=== PATIENT | female | born 1965 | race Caucasian/White ===

== ENCOUNTER 2017-11-18 07:51 | Emergency (ER) | payer BC ==
[2017-11-18 08:34] LABS: ABS Basophils 0.1 10^3/ul (0-0.2); ABS Eosinophils 0.1 10^3/ul (0-0.6); ABS Lymphocytes 1.3 10^3/ul (1.0-4.8); ABS Monocytes 0.6 10^3/ul (0-0.8); ABS Neutrophils 4.4 10^3/ul (1.5-7.7); ABS Nucleated RBC 0 10^3/ul; Eosinophil % 1.8 % (0-6); Hematocrit 42 % (35-47); Hemoglobin 14.5 g/dl (12.0-16.0); Lymphocyte % 19.9 % (25-47); Mean Corpuscular HGB Conc 35 g/dl (31-36); Mean Corpuscular Hemoglobin 32 pg (27-31); Mean Corpuscular Volume 93 fL (80-97); Mean Platelet Volume 7.7 um3 (7.4-10.4); Nucleated Red Blood Cells % 0.1; Platelet Count 269 10^3/ul (150-450); Red Blood Count 4.51 10^6/ul (4.0-5.4); Red Cell Distribution Width 13 % (10.5-15); White Blood Count 6.6 10^3/ul (3.5-10.8)
[2017-11-18 08:42] LABS: INR 0.88 (0.77-1.02)
[2017-11-18 08:51] LABS: EGFR Non-African American 76.7 (>60)
--- NOTE | 2017-11-18 09:25 | ED ---
Lower Extremity - HPI Summary HPI Summary: 52-year-old female presents with right leg pain for the past couple days. She states it feels similar to when she has DVT in the past. She wanted to be sure she doesn't have DVT because she is [place] [facility] [place] She denies any chest pain or shortness breath. She states she has numbness and tingling on the side of her right thigh. She admits to occasional hip pain. She denies any back pain. She denies any loss of bowel or bladder. She denies any saddle anesthesia. She denies any fevers. She denies any spreading redness. She denies any rash. She is able to ambulate without difficulty. She states she got blood clot because she is traveling and is on control. She is no longer on control. She denies any family history of blood clots. No recent surgeries. Is nonsmoker. She describes it as a cramp sensation in her calf occasionally. - History of Current Complaint Chief Complaint: EDExtremityLower Stated Complaint: RT LEG PAIN Time Seen by Provider: 11/18/17 08:08 Pain Intensity: 5 - Allergies/Home Medications Allergies/Adverse Reactions: Allergies Allergy/AdvReac Type Severity Reaction Status Date / Time MS Gluten Meal [Gluten Meal] Allergy POS BLOOD Verified 11/18/17 07:58 TEST- LOOSE STOOLS Home Medications: Home Medications Calcium Polycarbophil TAB* [Fibercon TAB*] 625 mg PO DAILY 11/18/17 [History Confirmed 11/18/17] PMH/Surg Hx/FS Hx/Imm Hx Endocrine/Hematology History: Denies: Hx Diabetes Cardiovascular History: Reports: Other Cardiovascular Problems/Disorders - DVT RIGHT LEG 2009 Denies: Hx Hypertension GI History: Reports: Other GI Disorders - GLUTEN INTOLERANT Musculoskeletal History: Denies: Hx Rheumatoid Arthritis, Hx Osteoporosis Sensory History: Denies: Hx Contacts or Glasses, Hx Hearing Aid Opthamlomology History: Denies: Hx Contacts or Glasses - Cancer History Hx Chemotherapy: No Hx Radiation Therapy: No - Surgical History Surgery Procedure, Year, and Place: hysterectomy Hx Anesthesia Reactions: No Infectious Disease History: No Infectious Disease History: Denies: Traveled Outside the [place] in Last 30 Days - Family History Known Family History: Negative: Blood Disorder - Social History Alcohol Use: Daily Alcohol Amount: 1 PER DAY Substance Use Type: Reports: None Smoking Status (MU): Never Smoked Tobacco Have You Smoked in the Last Year: No Review of Systems Negative: Fever Negative: Chest Pain Negative: Shortness Of Breath Positive: Myalgia - right leg All Other Systems Reviewed And Are Negative: Yes Physical Exam Triage Information Reviewed: Yes Vital Signs On Initial Exam: Initial Vitals Temp Pulse Resp BP Pulse Ox 99.3 F 78 16 162/98 100 11/18/17 07:56 11/18/17 07:56 11/18/17 07:56 11/18/17 07:56 11/18/17 07:56 Vital Signs Reviewed: Yes Appearance: Positive: Well-Appearing Skin: Positive: Warm, Dry Head/Face: Positive: Normal Head/Face Inspection Eyes: Positive: Normal, Conjunctiva Clear Respiratory/Lung Sounds: Positive: Clear to Auscultation, Breath Sounds Present Cardiovascular: Positive: Normal, RRR Musculoskeletal: Positive: Strength/ROM Intact - right leg pain, Other - good pulses, sensation grossly intact, neg homans, neg SASKIA test. Negative: Edema Right Neurological: Positive: Normal Psychiatric: Positive: Normal Diagnostics - Vital Signs Vital Signs Temp Pulse Resp BP Pulse Ox 11/18/17 07:56 99.3 F 78 16 162/98 100 - Laboratory Lab Results: Lab Results 11/18/17 11/18/17 11/18/17 Range/Units 08:17 08:17 08:17 WBC 6.6 (3.5-10.8) 10^3/ul RBC 4.51 (4.0-5.4) 10^6/ul Hgb 14.5 (12.0-16.0) g/dl Hct 42 (35-47) % MCV 93 (80-97) fL MCH 32 H (27-31) pg MCHC 35 (31-36) g/dl RDW 13 (10.5-15) % Plt Count 269 (150-450) 10^3/ul MPV 7.7 (7.4-10.4) um3 Neut % (Auto) 67.3 (38-83) % Lymph % (Auto) 19.9 L (25-47) % Gallia % (Auto) 9.4 H (0-7) % Eos % (Auto) 1.8 (0-6) % Baso % (Auto) 1.6 (0-2) % Absolute Neuts (auto) 4.4 (1.5-7.7) 10^3/ul Absolute Lymphs (auto) 1.3 (1.0-4.8) 10^3/ul Absolute Monos (auto) 0.6 (0-0.8) 10^3/ul Absolute Eos (auto) 0.1 (0-0.6) 10^3/ul Absolute Basos (auto) 0.1 (0-0.2) 10^3/ul Absolute Nucleated RBC 0 10^3/ul Nucleated RBC % 0.1 INR (Anticoag Therapy) 0.88 (0.77-1.02) APTT 28.4 (26.0-36.3) seconds Sodium 137 L (139-145) mmol/L Potassium 4.7 (3.5-5.0) mmol/L Chloride 106 (101-111) mmol/L Carbon Dioxide 27 (22-32) mmol/L Anion Gap 4 (2-11) mmol/L BUN 11 (6-24) mg/dL Creatinine 0.79 (0.51-0.95) mg/dL Est GFR ( Amer) 98.7 (>60) Est GFR (Non-Af Amer) 76.7 (>60) BUN/Creatinine Ratio 13.9 (8-20) Glucose 100 (70-100) mg/dL Calcium 9.4 (8.6-10.3) mg/dL Magnesium 2.0 (1.9-2.7) mg/dL Total Bilirubin 0.50 (0.2-1.0) mg/dL AST 18 (13-39) U/L ALT 11 (7-52) U/L Alkaline Phosphatase 61 (34-104) U/L Total Protein 6.7 (6.4-8.9) g/dL Albumin 4.2 (3.2-5.2) g/dL Globulin 2.5 (2-4) g/dL Albumin/Globulin Ratio 1.7 (1-3) Result Diagrams: 11/18/17 08:17 11/18/17 08:17 Lab Statement: Any lab studies that have been ordered have been reviewed, and results considered in the medical decision making process. Lower Extremity Course/Dx - Course Course Of Treatment: 52-year-old female presents with right leg pain for the past couple days. She states it feels similar to when she has DVT in the past. She wanted to be sure she doesn't have DVT because she is traveling to [facility] [place]. She denies any chest pain or shortness breath. She states she has numbness and tingling on the side of her right thigh. She admits to occasional hip pain. She denies any back pain. She denies any loss of bowel or bladder. She denies any saddle anesthesia. She denies any fevers. She denies any spreading redness. She denies any rash. She is able to ambulate without difficulty. She states she got blood clot because she is traveling and is on control. She is no longer on control. She denies any family history of blood clots. No recent surgeries. Is nonsmoker. on exam has neg SLR. nontender back. neg SASKIA. neurovascular intact. u/s shows no blood clot. labs wnl. will have follow up with primary. patient understand and agrees with plan. - Diagnoses Differential Diagnosis/HQI/PQRI: Positive: DVT, Sprain, Strain Provider Diagnoses: Right leg pain Discharge - Sign-Out/Discharge Documenting (check all that apply): Discharge/Admit/Transfer - Discharge Plan Condition: Good Disposition: HOME Patient Education Materials: Leg Pain (ED) Referrals: Baylee Simon MD [Primary Care Provider] - Additional Instructions: Take Tylenol or ibuprofen every 6 hours as needed for pain Apply ice, rest, elevate Follow up with primary care physician within 5 days Return to ED if develop any new or worsening symptoms - Billing Disposition and Condition Condition: GOOD Disposition: HOME
--- NOTE | 2017-11-18 09:28 | RAD ---
INDICATION: RIGHT leg pain. COMPARISON: July 11, 2012 ultrasound. TECHNIQUE: Hansen scale, color Doppler, and spectral analysis of the deep veins of the RIGHT lower extremity. Vessel compression, phasicity, and augmentation assessed. REPORT: The RIGHT common femoral, great saphenous, profunda femoral, duplicated femoral, popliteal, peroneal, and posterior tibial veins are patent. Patency of the LEFT common femoral vein documented. IMPRESSION: No evidence for RIGHT lower extremity deep venous thrombosis.
[2017-11-18 09:52] VITALS: BP 148/94
== END 2017-11-18 09:46 | disposition home or self-care (01) ==
LOC: ED 07:51
DX: M79.604 Pain in right leg (principal); Z86.718 Personal history of other venous thrombosis and embolism; K90.41 Non-celiac gluten sensitivity
CPT/HCPCS: 36415; 80053; 83735; 85025; 85610; 85730; 99281

== ENCOUNTER 2018-05-24 07:12 | Emergency (ER) | payer BC ==
[2018-05-24 07:23] VITALS: BP 129/79
--- NOTE | 2018-05-24 07:52 | UC ---
Eye Complaint HPI - HPI Summary HPI Summary: SINCE YESTERDAY HAS HAD A PAINFUL LUMP LEFT UPPER EYELID. NO VISUAL DISTURBANCE OTHER THAN SEEING IT IN HER FIELD OF VIEW WHEN SHE BLINKS. NO DRAINAGE FROM THE EYE. HAD A SIMILAR LESION RIGHT UPPER EYELID ABOUT A WEEK AGO THAT RESOLVED WITH HOT COMPRESSES. PT HERE WONDERING IF THERE IS A QUICKER FIX SHE IS CONCERNED ABOUT THE APPEARANCE. NO FEVER, NAUSEA, [place]. - History of Current Complaint Chief Complaint: UCEye Stated Complaint: EYE ISSUE Time Seen by Provider: 05/24/18 07:26 Hx Obtained From: Patient Onset/Duration: Gradual Onset, Lasting Days, Still Present Timing: Constant Severity Initially: Moderate Severity Currently: Moderate Pain Intensity: 3 Pain Scale Used: 0-10 Numeric Location of Injury: Eye Lid (upper) - LEFT Aggravating Factor(s): Nothing Alleviating Factor(s): Nothing Associated Signs And Symptoms: Negative: Photophobia, Drainage (Clear), Drainage (Purulent), Fever - Allergies/Home Medications Allergies/Adverse Reactions: Allergies Allergy/AdvReac Type Severity Reaction Status Date / Time gluten Allergy GI Upset Verified 05/24/18 07:24 Home Medications: Home Medications L.acidoph,Paracasei, B.lactis [Probiotic] 1 each PO DAILY 05/24/18 [History Confirmed 05/24/18] PMH/Surg Hx/FS Hx/Imm Hx Other GI/ History: CELIAC - Surgical History Surgical History: Yes Surgery Procedure, Year, and Place: hysterectomy - Family History Known Family History: Positive: Non-Contributory Negative: Blood Disorder - Social History Alcohol Use: Occasionally Alcohol Amount: 1 PER DAY Substance Use Type: None Smoking Status (MU): Never Smoked Tobacco Have You Smoked in the Last Year: No Review of Systems All Other Systems Reviewed And Are Negative: Yes Constitutional: Positive: Negative Eyes: Positive: Other - TENDER LUMP LEFT UPPER EYELID ENT: Positive: Negative Respiratory: Positive: Negative Cardiovascular: Positive: Negative Gastrointestinal: Positive: Negative Physical Exam Triage Information Reviewed: Yes Appearance: Well-Appearing, No Pain Distress, Well-Nourished Vital Signs: Initial Vital Signs Temp 98.3 F 05/24/18 07:18 Pulse 77 05/24/18 07:18 Resp 18 05/24/18 07:18 BP 129/79 05/24/18 07:18 Pulse Ox 100 05/24/18 07:18 Vital Signs Reviewed: Yes Eyes: Positive: Conjunctiva Clear, Other: - LEFT UPPER EYELID STYE. MILDLY TENDER. MILD ERYTHEMA. Negative: Discharge ENT: Positive: Hearing grossly normal Neck: Positive: Supple Respiratory: Positive: No respiratory distress, No accessory muscle use Cardiovascular: Positive: Pulses Normal Abdomen Description: Positive: Soft Musculoskeletal: Positive: No Edema Neurological: Positive: Alert Psychological: Positive: Age Appropriate Behavior Skin: Negative: Rashes Eye Complaint Course/Dx - Differential Dx/Diagnosis Provider Diagnosis: Hordeolum externum left upper eyelid Discharge - Sign-Out/Discharge Documenting (check all that apply): Patient Departure All imaging exams completed and their final reports reviewed: No Studies - Discharge Plan Condition: Stable Disposition: HOME Prescriptions: Erythromycin OPHTH.OINT* [Ilotycin OPHTH.OINT*] 1 applic LEFT EYE QID #1 tube Patient Education Materials: Danny (ED) Referrals: Baylee Simon MD [Primary Care Provider] - If Needed Francisco Hatfield MD [Medical Doctor] - If Needed Additional Instructions: CONTINUE HOT COMPRESSES THROOUGHOUT THE DAY. KEEP CLEAN. AVOID EYE MAKEUP. ANTIBIOTIC OINTMENT PRESCRIBED. FOLLOW-UP WITH AN EYE DOCTOR IF THE LESION IS NOT IMPROVING OR IF YOU DEVELOP INCREASED PAIN, SWELLING, VISUAL DISTURBANCES OR ANY OTHER CONCERNING SYMPTOMS. - Billing Disposition and Condition Condition: STABLE Disposition: Home
== END 2018-05-24 07:42 | disposition home or self-care (01) ==
LOC: UCEAST 07:12
DX: H00.014 Hordeolum externum left upper eyelid (principal)
CPT/HCPCS: 99212; G0463